=== PATIENT | male | born 1995 | race Two or more races ===

== ENCOUNTER 2019-09-09 11:18 | Inpatient (IN) | payer OTHER ==
[~2019-09-09] VITALS: Ht 172.7 cm; Wt 68.9 kg
[2019-09-09 11:20] VITALS: BP_SYST 153
[2019-09-09] MEDS ORDERED: NS 500 ML IV ONE (12:45)
[2019-09-09 13:15] LABS: CLARITY/URINE CLOUDY (CLEAR); COLOR,URINE YELLOW (YELLOW); PROTEIN URINE 2+ (NEGATIVE)
[2019-09-09 13:16] LABS: BILIRUBIN,URINE NEGATIVE (NEGATIVE); BLOOD, URINE 2+ (NEGATIVE); GLUCOSE,URINE NEGATIVE (NEGATIVE); KETONES,URINE NEGATIVE (NEGATIVE); LEUKOCYTE ESTERASE ,URINE 4+ (NEGATIVE); NITRITE, URINE POSITIVE (NEGATIVE)
[2019-09-09 13:18] LABS: BACTERIA,URINE MODERATE /HPF (None Seen); WBC,URINE >100 /HPF (0-3)
[2019-09-09 13:18] LABS: BASOPHILS # (AUTO) 0.1 K/uL (0.0-0.2); BASOPHILS % (AUTO) 1.1 % (0.0-2.0); EOSINOPHILS # (AUTO) 0.4 K/uL (0.0-0.4); EOSINOPHILS % (AUTO) 4.8 % (0.0-4.0); HEMATOCRIT 26.8 % (36-54); LYMPHOCYTES # (AUTO) 1.5 K/uL (1.0-5.5); LYMPHOCYTES % (AUTO) 19.1 % (20.5-51.5); MEAN CORPUSCULAR HEMOGLOBIN 27 pg (27-31); MEAN CORPUSCULAR HGB CONC 34 % (32-36); MEAN CORPUSCULAR VOLUME 79 fL (79.0-98.0); MONOCYTES # (AUTO) 0.6 K/uL (0.0-1.0); MONOCYTES % (AUTO) 7.5 % (1.7-9.3); NEUTROPHILS # (AUTO) 5.4 K/uL (1.8-7.7); NEUTROPHILS % (AUTO) 67.5 % (40.0-70.0); PLATELET COUNT (AUTO) 579 K/uL (130-430); RED BLOOD CELL COUNT(AUTO) 3.38 MIL/uL (4.2-6.2); RED CELL DISTRIBUTION WIDTH 16.5 % (9.0-15.0); WHITE BLOOD COUNT (AUTO) 7.9 K/uL (4.8-10.8)
[2019-09-09 13:25] LABS: CALCIUM 9.1 mg/dL (8.4-11.0); CREATININE 2.95 mg/dL (0.55-1.30); POTASSIUM 4.8 mmol/L (3.5-5.1)
[2019-09-09 13:30] LABS: TOTAL BILIRUBIN 0.2 mg/dL (0.0-1.0)
[2019-09-09 13:31] LABS: INR 1.1 (0.80-1.20); PROTHROMBIN TIME 11.4 SECS (9.5-12.5)
[2019-09-09] MEDS ORDERED: cefTRIAXone 1 GM IVPB PREMIX 50 ML IV ONE (15:30)
[2019-09-09] MEDS ORDERED: NACL 0.9% 1,000 ML IV ONE (17:00)
[2019-09-09] MEDS ORDERED: ACET325T53 PO (17:01)
[2019-09-09] MEDS ORDERED: CYAN100010 PO (17:01)
[2019-09-09] MEDS ORDERED: RANI150T8 PO (17:01)
[2019-09-09] MEDS ORDERED: HYDR-3607 PO (17:01)
[2019-09-09] MEDS ORDERED: ZINC500P17 MC (17:01)
[2019-09-09] MEDS ORDERED: DOCU-144 PO (17:01)
[2019-09-09] MEDS ORDERED: MULT-976 PO (17:01)
[2019-09-09] MEDS ORDERED: ONDA8TAB6 PO (17:01)
[2019-09-09] MEDS ORDERED: HYDR-3609 PO (17:01)
[2019-09-09] MEDS ORDERED: AMLO5TAB4 PO (17:01)
[2019-09-09] MEDS ORDERED: NA P230E RC (17:01)
[2019-09-09] MEDS ORDERED: BISA10SU61 RC (17:01)
[2019-09-09] MEDS ORDERED: ESCI10TA PO (17:01)
[2019-09-09] MEDS ORDERED: MAGNESIUM SULFATE 50 ML IV PRN (18:00)
[2019-09-09] MEDS ORDERED: MUPIROCIN 2% TOPICAL OINTMENT 22 GM NS PRN (18:00)
[2019-09-09] MEDS ORDERED: LORazepam 2 MG/ML VIAL IVP PRN (18:00)
[2019-09-09] MEDS ORDERED: MORPHINE 2 MG/ML INJ. SYRINGE IVP PRN ×2 (18:00)
[2019-09-09] MEDS ORDERED: MILK OF MAGNESIA 30 ML UDC PO ONE (18:00)
[2019-09-09] MEDS ORDERED: POTASSIUM CHLORIDE 20 MEQ TAB.PRT.SR PO PRN (18:00)
[2019-09-09] MEDS ORDERED: ACETAMINOPHEN 325 MG TABLET PO PRN (18:00)
[2019-09-09] MEDS ORDERED: ONDANSETRON HCL 4 MG/2 ML VIAL IVP PRN (18:00)
[2019-09-09] MEDS ORDERED: cloNIDine HCL 0.1 MG TABLET PO PRN (18:00)
[2019-09-09] MEDS ORDERED: BISACODYL 5 MG TABLET.DR (DULCOLAX) PO ONE (18:00)
[2019-09-09] MEDS ORDERED: DOCUSATE SODIUM 100 MG CAPSULE PO PRN (18:00)
[2019-09-09] MEDS ORDERED: ZOLPIDEM TARTRATE 5 MG TABLET PO PRN (18:00)
[2019-09-09 18:42] VITALS: BP_SYST 125
[2019-09-09] MEDS: HEPARIN SODIUM,PORCINE 5000 UNITS/ML VIAL SUBCUT SCH (21:00)
[2019-09-09] MEDS: DOCUSATE SODIUM 100 MG CAPSULE PO SCH (23:20)
[2019-09-10 01:44] VITALS: BP_SYST 164
[2019-09-10 06:34] LABS: BASOPHILS # (AUTO) 0.1 K/uL (0.0-0.2); BASOPHILS % (AUTO) 1.2 % (0.0-2.0); EOSINOPHILS # (AUTO) 0.3 K/uL (0.0-0.4); EOSINOPHILS % (AUTO) 4.1 % (0.0-4.0); HEMATOCRIT 28.9 % (36-54); HEMOGLOBIN 9.6 g/dL (14.0-18.0); LYMPHOCYTES # (AUTO) 1.7 K/uL (1.0-5.5); LYMPHOCYTES % (AUTO) 20.6 % (20.5-51.5); MEAN CORPUSCULAR HEMOGLOBIN 26 pg (27-31); MEAN CORPUSCULAR HGB CONC 33 % (32-36); MEAN CORPUSCULAR VOLUME 79 fL (79.0-98.0); MONOCYTES # (AUTO) 0.6 K/uL (0.0-1.0); MONOCYTES % (AUTO) 7.4 % (1.7-9.3); NEUTROPHILS # (AUTO) 5.4 K/uL (1.8-7.7); NEUTROPHILS % (AUTO) 66.7 % (40.0-70.0); PLATELET COUNT (AUTO) 631 K/uL (130-430); RED BLOOD CELL COUNT(AUTO) 3.66 MIL/uL (4.2-6.2); RED CELL DISTRIBUTION WIDTH 16.5 % (9.0-15.0)
[2019-09-10 07:39] LABS: TOTAL IRON BIND. CAPACITY 123 ug/dL (250-450)
[2019-09-10 08:02] LABS: CALCIUM 9.2 mg/dL (8.4-11.0); CREATININE 2.86 mg/dL (0.55-1.30); POTASSIUM 4.5 mmol/L (3.5-5.1)
[2019-09-10 08:30] VITALS: BP_SYST 134
[2019-09-10] MEDS ORDERED: ESCITALOPRAM OXALATE 10 MG TABLET PO SCH (09:00)
[2019-09-10] MEDS: DOCUSATE SODIUM 100 MG CAPSULE PO SCH ×2 (10:08→21:04)
[2019-09-10] MEDS: HEPARIN SODIUM,PORCINE 5000 UNITS/ML VIAL SUBCUT SCH (10:09)
[2019-09-10] MEDS: amLODIPine BESYLATE 10 MG TABLET PO SCH (10:12)
[2019-09-10 11:56] LABS: BILIRUBIN,URINE NEGATIVE (NEGATIVE); BLOOD, URINE 1+ (NEGATIVE); CLARITY/URINE CLEAR (CLEAR); COLOR,URINE YELLOW (YELLOW); GLUCOSE,URINE NEGATIVE (NEGATIVE); KETONES,URINE NEGATIVE (NEGATIVE); LEUKOCYTE ESTERASE ,URINE 3+ (NEGATIVE); NITRITE, URINE POSITIVE (NEGATIVE); PROTEIN URINE TRACE (NEGATIVE); UROBILINOGEN,URINE 0.2 (0.2-1.0)
[2019-09-10 11:57] LABS: BACTERIA,URINE MODERATE /HPF (None Seen); MUCUS,URINE 1+ /LPF (None Seen); WBC,URINE 80-100 /HPF (0-3)
[2019-09-10 12:15] VITALS: BP_SYST 127
[2019-09-10 16:25] VITALS: BP_SYST 123
[2019-09-10] MEDS: cefTRIAXone 1 GM in D5W 50 ML IV SCH ×2 (18:00→18:02)
[2019-09-10] MEDS: NACL 0.9% 1,000 ML IV SCH (18:02)
[2019-09-10 19:21] VITALS: BP_SYST 138
[2019-09-11 00:32] VITALS: BP_SYST 146
[2019-09-11] MEDS: NACL 0.9% 1,000 ML IV SCH ×2 (03:28→20:00)
[2019-09-11 06:50] LABS: BASOPHILS # (AUTO) 0.1 K/uL (0.0-0.2); BASOPHILS % (AUTO) 0.9 % (0.0-2.0); EOSINOPHILS # (AUTO) 0.4 K/uL (0.0-0.4); EOSINOPHILS % (AUTO) 4.7 % (0.0-4.0); HEMATOCRIT 26.7 % (36-54); LYMPHOCYTES # (AUTO) 1.5 K/uL (1.0-5.5); LYMPHOCYTES % (AUTO) 19.7 % (20.5-51.5); MEAN CORPUSCULAR HEMOGLOBIN 27 pg (27-31); MEAN CORPUSCULAR HGB CONC 34 % (32-36); MEAN CORPUSCULAR VOLUME 78 fL (79.0-98.0); MONOCYTES # (AUTO) 0.6 K/uL (0.0-1.0); MONOCYTES % (AUTO) 8.2 % (1.7-9.3); NEUTROPHILS # (AUTO) 5.2 K/uL (1.8-7.7); NEUTROPHILS % (AUTO) 66.5 % (40.0-70.0); PLATELET COUNT (AUTO) 575 K/uL (130-430); RED CELL DISTRIBUTION WIDTH 16.6 % (9.0-15.0); WHITE BLOOD COUNT (AUTO) 7.8 K/uL (4.8-10.8)
[2019-09-11 07:20] LABS: CALCIUM 8.6 mg/dL (8.4-11.0); CREATININE 1.54 mg/dL (0.55-1.30); POTASSIUM 3.4 mmol/L (3.5-5.1)
[2019-09-11 08:00] VITALS: BP_SYST 156
[2019-09-11] MEDS: FERROUS SULFATE 325 MG TABLET.DR PO SCH (09:47)
[2019-09-11] MEDS: DOCUSATE SODIUM 100 MG CAPSULE PO SCH ×2 (09:47→21:00)
[2019-09-11] MEDS: amLODIPine BESYLATE 10 MG TABLET PO SCH (09:49)
[2019-09-11 13:04] VITALS: BP_SYST 130
[2019-09-11 17:13] VITALS: BP_SYST 121
[2019-09-11 20:00] VITALS: BP_SYST 130
[2019-09-12 00:26] VITALS: BP_SYST 95
[2019-09-12 00:28] VITALS: BP_SYST 149
[2019-09-12] MEDS: NACL 0.9% 1,000 ML IV SCH ×2 (06:00→09:47)
[2019-09-12 06:29] LABS: BASOPHILS # (AUTO) 0.1 K/uL (0.0-0.2); BASOPHILS % (AUTO) 0.7 % (0.0-2.0); EOSINOPHILS # (AUTO) 0.6 K/uL (0.0-0.4); EOSINOPHILS % (AUTO) 5.7 % (0.0-4.0); HEMATOCRIT 26.9 % (36-54); HEMOGLOBIN 8.9 g/dL (14.0-18.0); LYMPHOCYTES # (AUTO) 1.7 K/uL (1.0-5.5); LYMPHOCYTES % (AUTO) 15.8 % (20.5-51.5); MEAN CORPUSCULAR HEMOGLOBIN 26 pg (27-31); MEAN CORPUSCULAR HGB CONC 33 % (32-36); MEAN CORPUSCULAR VOLUME 78 fL (79.0-98.0); NEUTROPHILS # (AUTO) 7.5 K/uL (1.8-7.7); NEUTROPHILS % (AUTO) 68.8 % (40.0-70.0); PLATELET COUNT (AUTO) 531 K/uL (130-430); RED BLOOD CELL COUNT(AUTO) 3.43 MIL/uL (4.2-6.2); RED CELL DISTRIBUTION WIDTH 16.1 % (9.0-15.0); WHITE BLOOD COUNT (AUTO) 10.9 K/uL (4.8-10.8)
[2019-09-12 06:47] LABS: CALCIUM 8.4 mg/dL (8.4-11.0); CREATININE 1.11 mg/dL (0.55-1.30); POTASSIUM 3.5 mmol/L (3.5-5.1)
[2019-09-12 08:00] VITALS: BP_SYST 138
[2019-09-12] MEDS ORDERED: *TOBRAMYCIN PER PHARMACY XX PRN (09:00)
[2019-09-12] MEDS ORDERED: cefTRIAXone 1 GM in D5W 50 ML IV SCH (09:00)
[2019-09-12] MEDS: FERROUS SULFATE 325 MG TABLET.DR PO SCH (09:42)
[2019-09-12] MEDS: BALSAM PERU/CASTOR OIL 60 GM OINT...G. TP SCH ×2 (09:42→09:48)
[2019-09-12] MEDS: DOCUSATE SODIUM 100 MG CAPSULE PO SCH ×2 (09:42→21:00)
[2019-09-12] MEDS: amLODIPine BESYLATE 10 MG TABLET PO SCH (09:43)
[2019-09-12] MEDS ORDERED: MAGNESIUM SULFATE IN WATER 100 ML IV ONE (11:00)
[2019-09-12 12:00] VITALS: BP_SYST 143
[2019-09-12] MEDS: NS IV SCH ×2 (13:00→22:35)
[2019-09-12] MEDS: TOBRAMYCIN SULFATE IV SCH ×2 (13:00→22:35)
[2019-09-12 16:00] VITALS: BP_SYST 138
[2019-09-13 00:19] VITALS: BP_SYST 129
[2019-09-13] MEDS: TOBRAMYCIN SULFATE IV SCH ×3 (03:00→18:39)
[2019-09-13] MEDS: NS IV SCH ×3 (03:00→18:39)
[2019-09-13 07:08] LABS: BASOPHILS # (AUTO) 0.1 K/uL (0.0-0.2); BASOPHILS % (AUTO) 0.5 % (0.0-2.0); EOSINOPHILS # (AUTO) 0.7 K/uL (0.0-0.4); HEMATOCRIT 26.1 % (36-54); HEMOGLOBIN 8.8 g/dL (14.0-18.0); LYMPHOCYTES # (AUTO) 1.9 K/uL (1.0-5.5); LYMPHOCYTES % (AUTO) 20.1 % (20.5-51.5); MEAN CORPUSCULAR HEMOGLOBIN 26 pg (27-31); MEAN CORPUSCULAR HGB CONC 34 % (32-36); MEAN CORPUSCULAR VOLUME 78 fL (79.0-98.0); MONOCYTES # (AUTO) 0.8 K/uL (0.0-1.0); MONOCYTES % (AUTO) 8.8 % (1.7-9.3); NEUTROPHILS % (AUTO) 63.6 % (40.0-70.0); PLATELET COUNT (AUTO) 520 K/uL (130-430); RED BLOOD CELL COUNT(AUTO) 3.34 MIL/uL (4.2-6.2); RED CELL DISTRIBUTION WIDTH 16.2 % (9.0-15.0); WHITE BLOOD COUNT (AUTO) 9.4 K/uL (4.8-10.8)
[2019-09-13 08:03] LABS: CALCIUM 7.9 mg/dL (8.4-11.0); CREATININE 0.94 mg/dL (0.55-1.30); POTASSIUM 3.8 mmol/L (3.5-5.1)
[2019-09-13 08:19] VITALS: BP_SYST 151
[2019-09-13] MEDS: FERROUS SULFATE 325 MG TABLET.DR PO SCH (08:41)
[2019-09-13] MEDS: DOCUSATE SODIUM 100 MG CAPSULE PO SCH ×2 (08:41→21:24)
[2019-09-13] MEDS: amLODIPine BESYLATE 10 MG TABLET PO SCH (08:41)
[2019-09-13] MEDS: NACL 0.9% 1,000 ML IV SCH ×2 (09:04→21:24)
[2019-09-13 16:57] VITALS: BP_SYST 136
[2019-09-13] MEDS: BALSAM PERU/CASTOR OIL 60 GM OINT...G. TP SCH (18:40)
[2019-09-13 20:00] VITALS: BP_SYST 119
[2019-09-14 00:13] VITALS: BP_SYST 139
[2019-09-14] MEDS: NACL 0.9% 1,000 ML IV SCH ×3 (03:15→18:00)
[2019-09-14] MEDS: NS IV SCH ×3 (03:15→23:39)
[2019-09-14] MEDS: TOBRAMYCIN SULFATE IV SCH ×3 (03:15→23:39)
[2019-09-14 06:23] LABS: BASOPHILS # (AUTO) 0.1 K/uL (0.0-0.2); BASOPHILS % (AUTO) 0.7 % (0.0-2.0); EOSINOPHILS # (AUTO) 0.6 K/uL (0.0-0.4); EOSINOPHILS % (AUTO) 7.1 % (0.0-4.0); HEMOGLOBIN 8.5 g/dL (14.0-18.0); LYMPHOCYTES % (AUTO) 22.1 % (20.5-51.5); MEAN CORPUSCULAR HEMOGLOBIN 27 pg (27-31); MEAN CORPUSCULAR HGB CONC 34 % (32-36); MEAN CORPUSCULAR VOLUME 78 fL (79.0-98.0); MONOCYTES # (AUTO) 0.9 K/uL (0.0-1.0); NEUTROPHILS # (AUTO) 5.3 K/uL (1.8-7.7); NEUTROPHILS % (AUTO) 60.1 % (40.0-70.0); PLATELET COUNT (AUTO) 485 K/uL (130-430); RED BLOOD CELL COUNT(AUTO) 3.19 MIL/uL (4.2-6.2); RED CELL DISTRIBUTION WIDTH 16.6 % (9.0-15.0); WHITE BLOOD COUNT (AUTO) 8.9 K/uL (4.8-10.8)
[2019-09-14 06:36] LABS: CALCIUM 8.2 mg/dL (8.4-11.0); CREATININE 0.92 mg/dL (0.55-1.30); POTASSIUM 3.6 mmol/L (3.5-5.1)
[2019-09-14] MEDS: DOCUSATE SODIUM 100 MG CAPSULE PO SCH ×2 (09:57→21:23)
[2019-09-14] MEDS: FERROUS SULFATE 325 MG TABLET.DR PO SCH (09:57)
[2019-09-14 10:00] VITALS: BP_SYST 159
[2019-09-14] MEDS: amLODIPine BESYLATE 10 MG TABLET PO SCH (10:07)
[2019-09-14] MEDS: BALSAM PERU/CASTOR OIL 60 GM OINT...G. TP SCH (10:08)
[2019-09-14 13:20] VITALS: BP_SYST 122
[2019-09-14 16:30] VITALS: BP_SYST 121
[2019-09-14 20:00] VITALS: BP_SYST 122
[2019-09-15] VITALS: BP_SYST 113
[2019-09-15 08:00] VITALS: BP_SYST 115
[2019-09-15] MEDS: TOBRAMYCIN SULFATE IV SCH ×2 (10:22→22:03)
[2019-09-15] MEDS: NS IV SCH ×2 (10:22→22:03)
[2019-09-15 12:00] VITALS: BP_SYST 116
[2019-09-15 16:00] VITALS: BP_SYST 126
[2019-09-15 20:00] VITALS: BP_SYST 119
[2019-09-16 01:37] VITALS: BP_SYST 119
[2019-09-16 08:00] VITALS: BP_SYST 120
[2019-09-16] MEDS ORDERED: DOCUSATE SODIUM 100 MG CAPSULE PO PRN (09:45)
[2019-09-16] MEDS ORDERED: MUPIROCIN 2% TOPICAL OINTMENT 22 GM NS PRN (09:45)
[2019-09-16] MEDS ORDERED: LORazepam 2 MG/ML VIAL IVP PRN (09:45)
[2019-09-16] MEDS ORDERED: ONDANSETRON HCL 4 MG/2 ML VIAL IVP PRN (09:45)
[2019-09-16] MEDS ORDERED: MORPHINE 2 MG/ML INJ. SYRINGE IVP PRN ×2 (09:45)
[2019-09-16] MEDS ORDERED: MAGNESIUM SULFATE 50 ML IV PRN (09:45)
[2019-09-16] MEDS ORDERED: POTASSIUM CHLORIDE 20 MEQ TAB.PRT.SR PO PRN (09:45)
[2019-09-16] MEDS ORDERED: ZOLPIDEM TARTRATE 5 MG TABLET PO PRN (09:45)
[2019-09-16] MEDS ORDERED: ACETAMINOPHEN 325 MG TABLET PO PRN (09:45)
[2019-09-16 12:36] VITALS: BP_SYST 109
[2019-09-16] MEDS: NS IV SCH (13:48)
[2019-09-16] MEDS: TOBRAMYCIN SULFATE IV SCH (13:48)
[2019-09-16 15:24] VITALS: BP_SYST 109
[2019-09-16 16:42] VITALS: BP_SYST 114
[2019-09-16] MEDS ORDERED: HEPARIN SODIUM,PORCINE 5000 UNITS/ML VIAL SUBCUT SCH (21:00)
== END 2019-09-16 18:05 | DRG 466 ==
LOC: SED 11:18 → STU 16:46 → SMU 09-11 11:39 → UNDODISIN 09-14 09:26
PROVIDERS: ADMIT General Practice; ATTEND General Practice
DX: T83.511A Infection and inflammatory reaction due to indwelling urethral catheter, initial encounter (principal); N17.0 Acute kidney failure with tubular necrosis; E43 Unspecified severe protein-calorie malnutrition; G82.50 Quadriplegia, unspecified; L89.154 Pressure ulcer of sacral region, stage 4; D69.6 Thrombocytopenia, unspecified; E83.42 Hypomagnesemia; N31.9 Neuromuscular dysfunction of bladder, unspecified; B96.5 Pseudomonas (aeruginosa) (mallei) (pseudomallei) as the cause of diseases classified elsewhere; I10 Essential (primary) hypertension; D50.9 Iron deficiency anemia, unspecified; Y84.6 Urinary catheterization as the cause of abnormal reaction of the patient, or of later complication, without mention of misadventure at the time of the procedure; N13.6 Pyonephrosis; K80.20 Calculus of gallbladder without cholecystitis without obstruction; Z68.23 Body mass index [BMI] 23.0-23.9, adult
CPT/HCPCS: 36415; 71045; 76770; 80048; 80053; 80200; 81000-TC; 83036; 83540-TC; 83550-TC; 83605; 83735-TC; 84484; 85025; 85610-TC; 85730-TC; 87040-TC; 87081; 87086; 87186-TC; 93005; 96361; 96365; 99285; G0378; J0696; J1644; J3260; J3475; J7030; J7040; J7060

== ENCOUNTER 2020-03-15 00:29 | Emergency (ER) | payer OTHER ==
[~2020-03-15] VITALS: Ht 175.3 cm; Wt 68.0 kg
[~2020-03-15 00:29] MED LIST: ACET325T53 PO; AMLO5TAB4 PO; BISA10SU61 RC; CYAN100010 PO; DOCU-144 PO; ESCI10TA PO; HYDR-3607 PO; HYDR-3609 PO; MULT-976 PO; NA P230E RC; ONDA8TAB6 PO; RANI150T8 PO; ZINC500P17 MC
[2020-03-15 00:45] VITALS: BP_SYST 100
--- NOTE | 2020-03-15 00:45 | NUR ---
Patient to ER bed 02 to gown for evaluation. Side rails up. Report given to HANNAH Dutton
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
--- NOTE | 2020-03-15 01:03 | NUR ---
ER Dr. Jacobs at bedside examining patient.
[2020-03-15] MEDS ORDERED: NACL 0.9% 1,000 ML IV ONE (01:08)
[2020-03-15] MEDS ORDERED: KETOROLAC TROMETHAMINE 30 MG VIAL IVP ONE (01:15)
[2020-03-15] MEDS ORDERED: ONDANSETRON HCL 4 MG/2 ML VIAL IVP ONE (01:15)
[2020-03-15] MEDS ORDERED: cefTRIAXone 1 GM IVPB PREMIX 50 ML IV ONE (01:15)
--- NOTE | 2020-03-15 01:30 | NUR ---
# 16 FR Jeknins catheter with use of sterile technique. Immediate return of 10 cc blood urine noted. Bedside drainage bag placed below level of bladder. Urine sample collected and sent to lab. Pt tolerated procedure well. Patient arrived with jenkins in place, changed due to standard of practice prior to admission. Patient unable to toilet self.
[2020-03-15 01:48] LABS: HEMOGLOBIN 13.1 g/dL (14.0-18.0); MEAN CORPUSCULAR HEMOGLOBIN 28 pg (27-31); MEAN CORPUSCULAR HGB CONC 33 % (32-36); MEAN CORPUSCULAR VOLUME 86 fL (79.0-98.0); PLATELET COUNT (AUTO) 443 K/uL (130-430); RED BLOOD CELL COUNT(AUTO) 4.64 MIL/uL (4.2-6.2); RED CELL DISTRIBUTION WIDTH 16.8 % (9.0-15.0); WHITE BLOOD COUNT (AUTO) 13.9 K/uL (4.8-10.8)
[2020-03-15 01:55] LABS: CALCIUM 8.5 mg/dL (8.4-11.0); CREATININE 0.63 mg/dL (0.55-1.30); POTASSIUM 3.9 mmol/L (3.5-5.1)
[2020-03-15 01:59] LABS: ALBUMIN 2.8 g/dL (3.4-4.8); INR 1.1 (0.80-1.20); PROTHROMBIN TIME 11.5 SECS (9.5-12.5); TOTAL BILIRUBIN 0.4 mg/dL (0.0-1.0)
[2020-03-15 02:06] LABS: ATYPICAL LYMPHOCYTES % 0 % (0-0); BAND % (MANUAL) 0 % (0-6); BASOPHILS % (MANUAL) 0 % (0-2); EOSINOPHILS % (MANUAL) 0 % (0-7); LYMPHOCYTES % (MANUAL) 17 % (20-46); MONOCYTES % (MANUAL) 16 % (0-11)
[2020-03-15 03:00] LABS: BILIRUBIN,URINE 2+ (NEGATIVE); BLOOD, URINE 3+ (NEGATIVE); CLARITY/URINE CLOUDY (CLEAR); COLOR,URINE RED (YELLOW); GLUCOSE,URINE TRACE (NEGATIVE); KETONES,URINE 1+ (NEGATIVE); LEUKOCYTE ESTERASE ,URINE 3+ (NEGATIVE); NITRITE, URINE POSITIVE (NEGATIVE); PH,URINE 7.5 (5.0-8.0); PROTEIN URINE 3+ (NEGATIVE)
[2020-03-15 03:04] LABS: BACTERIA,URINE MODERATE /HPF (None Seen); RBC,URINE >100 /HPF (0-3); WBC,URINE >100 /HPF (0-3)
--- NOTE | 2020-03-15 03:20 | NUR ---
Patient resting quietly. No acute distress noted. Vital signs within normal range.
--- NOTE | 2020-03-15 04:12 | NUR ---
report given to HAN[facility]H Rivera ([facility] Patient will discharge and transfer back to facility with home medication.
[2020-03-15 04:55] VITALS: BP_SYST 116
--- NOTE | 2020-03-15 04:55 | NUR ---
Patient given written and verbal discharge instructions and verbalizes understanding. ER MD discussed with patient the results and treatment provided. Patient in stable condition. ID arm band removed. Rx of Doxycycline given. Patient educated on pain management and to follow up with PMD. Pain Scale 0/10. Opportunity for questions provided and answered. Medication side effect fact sheet provided. [facility] [place] [facility] EMS.
== END 2020-03-15 04:55 | disposition home or self-care (01) ==
LOC: SED 00:29
DX: N30.21 Other chronic cystitis with hematuria (principal); E11.9 Type 2 diabetes mellitus without complications; Z79.899 Other long term (current) drug therapy
CPT/HCPCS: 36415; 51702; 80053; 81000; 83605; 83690; 85007; 85027; 85610; 85730; 87040; 87086; 96365; 96375; 99284; J0696; J1885; J2405; J7030